=== PATIENT | male | born 1955 | race Caucasian/White ===

== ENCOUNTER 2022-07-30 06:36 | Emergency (ER) | payer MEDICARE, SELFPAY ==
--- NOTE | ~2022-07-30 | XR_ITS ---
EXAMINATION: XR chest 2V DATE: 07/30/2022 07:01 INDICATION: Shortness of breath. TECHNIQUE: Frontal and lateral views of the chest were obtained. COMPARISON: Chest 2 views 08/31/2018, CT chest 05/11/2014 FINDINGS: Calcified right lung nodules and calcified right hilar lymph nodes are consistent with old granulomatous disease. No pleural effusion or pneumothorax. The heart size is normal. IMPRESSION: 1. No acute cardiopulmonary disease. Reviewed, dictated and finalized at location A.
[2022-07-30 06:37] VITALS: BP 119/89; PULSE 110; RESP 20; TEMP 36.1; O2SAT 100
--- NOTE | 2022-07-30 06:43 | ECG_ITS ---
Measurements Intervals [place] Rate: 61 P: 57 SC: 182 QRS: 34 QRSD: 90 T: 78 QT: 388 QTc: 393 Interpretive Statements SINUS RHYTHM POSSIBLE LEFT ATRIAL ENLARGEMENT BORDERLINE T WAVE ABNORMALITY- ANT/HIGH LAT LEADS BASELINE ARTIFACT- V3 BORDERLINE ECG COMPARED TO ECG 08/31/2018 08:12:38 T-WAVE ABNORMALITY NOW PRESENT Electronically Signed On 07-30-2022 8:02:13 CDT by Tristin Redman D.O.
[2022-07-30 06:57] LABS: Basophils Absolute Auto 0.1 K/mm3 (0.0-0.1); Basophils Percent Auto 0.8 % (0.2-1.2); Eosinophils Absolute Auto 0.1 K/mm3 (0-0.3); Eosinophils Percent Auto 1.6 % (0-4.4); Hematocrit 51.6 % (42.0-52.0); Hemoglobin 17.1 g/dL (14.0-18.0); Immature Granulocyte Absolute 0.02 K/mm3 (0.00-0.031); Immature Granulocyte Percent A 0.3 % (0-0.5); Lymphocytes Absolute Auto 2.61 K/mm3 (0.9-3.2); Lymphocytes Percent Auto 35.4 % (18.3-44.2); Mean Corpuscular HGB Conc 33.1 g/dl (32-36); Mean Corpuscular Volume 93.6 fl (80-100); Mean Platelet Volume 8.6 fl (7.4-10.4); Monocytes Absolute Auto 0.7 K/mm3 (0.1-0.6); Monocytes Percent Auto 9.1 % (2.6-8.5); Neutrophils Absolute Auto 3.9 K/mm3 (1.3-6.7); Neutrophils Percent Auto 52.8 % (45.5-73.1); Platelet Count Result 330 k/mm3 (150-375); Red Blood Count 5.51 M/mm3 (4.6-6.20); Red Cell Distribution Width 13.2 % (11.5-14.5); White Blood Count 7.4 K/mm3 (4.5-10.0)
[2022-07-30 07:11] LABS: Alanine Aminotransferase 26 U/L (6-50); Alkaline Phosphatase 56 U/L (38-126); Anion Gap 9 mmol/L (8-16); Aspartate Amino Transferase 29 U/L (17-59); Bilirubin,Total 1.1 mg/dL (0.2-1.3); Blood Urea Nitrogen 13 mg/dL (9-20); Calcium 9.8 mg/dL (8.4-10.2); Carbon Dioxide 28 mmol/L (22-30); Chloride 103 mmol/L (98-107); Estimated CRCL calculation 68 ml/min; Estimated Glomerular Filt Rate > 60; Glucose 127 mg/dL (65-110); Potassium 4.1 mmol/L (3.4-5.0); Sodium 140 mmol/L (137-145)
[2022-07-30 07:13] VITALS: PULSE 61; O2SAT 100
[2022-07-30 07:14] VITALS: O2SAT 100
[2022-07-30 07:17] VITALS: BP 120/85; PULSE 67; RESP 18; O2SAT 100
--- NOTE | 2022-07-30 07:31 | ED.ARRPALP ---
HPI - Arrhythmia/Palpitations General Chief Complaint: Arrhythmia/Palpitations Stated Complaint: believes in a-fib for 24 hours, sob Time Seen by Provider: 07/30/22 07:31 Source: patient Mode of arrival: ambulatory Limitations: no limitations History of Present Illness HPI narrative: Patient is 66 years old white male drove himself to the emergency room because of palpitation over the last 30 hours. He denies any chest pain, fever, chills, nausea, vomiting, shortness of breath or back pain. The monitor and EKG showing normal sinus rhythm but patient is still feels his heart is acting funny and fluttering. History of atrial fibrillation converted to normal sinus rhythm years ago, currently on Cardizem Related Data Home Medications Medication Instructions Recorded Confirmed aspirin 325 mg tablet 325 mg PO DAILY 09/29/19 01/02/22 magnesium oxide 500 mg tablet 500 mg PO DAILY 09/29/19 01/02/22 urtmabwn-oyk-kmhky acid 300 1 tablet PO DAILY 09/29/19 01/02/22 mcg-lycopene 600 mcg-lutein 300 mcg tablet (Centrum Silver Ultra Men's) Allergies Allergy/AdvReac Type Severity Reaction Status Date / Time methocarbamol Allergy Unknown HIVES Verified 07/30/22 07:18 Review of Systems Review of Systems: All systems reviewed & are unremarkable except as noted in HPI and below PMFSH Surgical History Surgical History History of cataract surgery Mar 2021 Family History Family History Mother Patient's mother is in good health Father Family history of heart disease in male family member before age 55, Onset Age: 66 Patient's father is , Onset Age: 66 Social History Social History Smoking status: Never smoker Second hand tobacco smoke exposure: No Alcohol intake: current Drinks per week: 10 Substance use: never Lack of Transportation: No Lack of Food: Never True Current Housing: I Have Housing Concerned About Future Housing: No Difficulty Paying Gas/Electric Bills: No Difficulty Paying for Meds: No Currently Unemployed: No Education: Bachelor's Degree Difficulty w/ Childcare or Family Care: No Exam Narrative: General appearance: Well-developed, well-nourished Skin: Normal color Head: Normocephalic, nontraumatic Eyes: Clear conjunctiva ENT: Oropharynx normal, ears normal, nose normal Neck: Supple, nontender Chest and respiratory: Airway patent, no respiratory distress, no accessory muscle use Heart: Regular rate/rhythm Abdomen: Soft, nontender, no organomegaly, quiet bowel sounds Vascular: Normal peripheral pulses, normal capillary refill. Musculoskeletal: Normal range of motion, nontender back Neurologic: Alert and oriented ?3, STOCKROOM KEEPER is normal as tested, no gross motor deficit Course Reevaluation(s) Reevaluation #1: Patient feeling much better, convinced that he does not have A-fib even with physical activity at the bedside before discharge. Date: 07/30/22 Time: 09:14 Vital Signs Vital signs: Vital Signs Temperature 36.1 C L 07/30/22 06:37 Pulse Rate 110 H 07/30/22 06:37 Respiratory Rate 20 07/30/22 06:37 Blood Pressure 119/89 07/30/22 06:37 Pulse Oximetry 100 07/30/22 06:37 Oxygen Delivery Room Air 07/30/22 06:37 Temperature 36.1 C L 07/30/22 06:37 Pulse Rate 80 07/30/22 07:53 Respiratory Rate 20 07/30/22 07:53 Blood Pressure 129/85 07/30/22 07:53 Pulse Oximetry 100 07/30/22 07:53 Oxygen Delivery Room Air 07/30/22 07:14 MDM - Arrhythmia/Palpitations MDM Narrative Medi
[2022-07-30 07:53] VITALS: BP 129/85; PULSE 80; RESP 20; O2SAT 100
== END 2022-07-30 08:03 | disposition home or self-care (01) ==
PROVIDERS: Emergency Medicine; Emergency Provider Emergency Medicine; PCP Physician Assistant
DX: R00.2 Palpitations (principal); I48.91 Unspecified atrial fibrillation; Z98.49 Cataract extraction status, unspecified eye; Z79.82 Long term (current) use of aspirin; R94.31 Abnormal electrocardiogram [ECG] [EKG]
CPT/HCPCS: 36415; 71046; 80053; 85025; 93005; 99284

== ENCOUNTER 2023-11-09 08:38 | Emergency (ER) | payer MEDICARE, SELFPAY ==
--- NOTE | ~2023-11-09 | CT_ITS ---
EXAMINATION: CT lumbar spine wo con DATE: 11/09/2023 10:32 INDICATION: Low back pain. TECHNIQUE: Computed tomography (CT) of the lumbar spine was performed without intravenous contrast. A utomated exposure control and iterative reconstruction technique were employed. The dose-length produ ct was 1315.52 mGy-cm. COMPARISON: None FINDINGS: Alignment is normal. There is mild chronic anterior wedging of T11-L2 vertebral bodies. The re is mildly decreased disc height from L2-L3 through L4-L5 and moderately decreased disc height at L 5-S1. The following disc levels are specifically discussed: L1-L2: The disc does not extend beyond the endplate margin. There is mild bilateral facet joint osteo arthritis. There is no neural foraminal stenosis. There is no central canal stenosis. L2-L3: The disc is bulging. There is mild bilateral facet joint osteoarthritis. There is mild bilater al neural foraminal stenosis. There is mild central canal stenosis. L3-L4: The disc is bulging. There is mild right and moderate left facet joint osteoarthritis. There i s mild bilateral neural foraminal stenosis. There is mild central canal stenosis. L4-L5: The disc is bulging. There is severe bilateral facet joint osteoarthritis. There is mild bilat eral neural foraminal stenosis. There is mild central canal stenosis. L5-S1: The disc is bulging. There is moderate bilateral facet joint osteoarthritis. There is mild lorri ateral neural foraminal stenosis. There is mild central canal stenosis. IMPRESSION: 1. Moderate lumbar spondylosis. Reviewed, dictated and finalized at location A.
[2023-11-09 08:43] VITALS: BP 141/96; PULSE 73; RESP 20; TEMP 36.4; O2SAT 97
[2023-11-09 10:05] LABS: Basophils Absolute Auto 0.1 K/mm3 (0.0-0.1); Basophils Percent Auto 0.5 % (0.2-1.2); Eosinophils Percent Auto 0.2 % (0-4.4); Hematocrit 45.4 % (42.0-52.0); Hemoglobin 15.1 g/dL (14.0-18.0); Immature Granulocyte Absolute 0.06 K/mm3 (0.00-0.031); Immature Granulocyte Percent A 0.5 % (0-0.5); Lymphocytes Percent Auto 27.9 % (18.3-44.2); Mean Corpuscular HGB Conc 33.3 g/dl (32-36); Mean Corpuscular Hemoglobin 31.1 pg (26-34); Mean Corpuscular Volume 93.6 fl (80-100); Mean Platelet Volume 8.9 fl (7.4-10.4); Monocytes Percent Auto 9.1 % (2.6-8.5); Neutrophils Absolute Auto 7.1 K/mm3 (1.3-6.7); Neutrophils Percent Auto 61.8 % (45.5-73.1); Platelet Count Result 321 k/mm3 (150-375); Red Blood Count 4.85 M/mm3 (4.6-6.20); Red Cell Distribution Width 12.8 % (11.5-14.5); White Blood Count 11.5 K/mm3 (4.5-10.0)
[2023-11-09] MEDS: HYDROmorphone HCL INJ (*CRX) 1 MG/ML SYR IV PUSH (10:05)
[2023-11-09] MEDS: LACTATED RINGERS 1,000 ML 999 ML IV CONT (10:05)
[2023-11-09 10:09] LABS: Anion Gap 13 mmol/L (4-12); Blood Urea Nitrogen 16 mg/dL (9-20); Calcium 9.6 mg/dL (8.4-10.2); Carbon Dioxide 26 mmol/L (22-30); Chloride 99 mmol/L (98-107); Estimated CRCL calculation 70 ml/min; Estimated Glomerular Filt Rate > 60; Glucose 96 mg/dL (65-110); Potassium 3.4 mmol/L (3.4-5.0); Sodium 138 mmol/L (137-145)
--- NOTE | 2023-11-09 11:03 | PC.NURSE ---
Pt provided with urinal for urine sample. Pt states he will try
[2023-11-09 12:49] VITALS: BP 137/90; PULSE 60; RESP 20; O2SAT 98
[2023-11-09 13:08] LABS: Add Urine Microscopic? YES; Appearance Urine Turbid (Clear); Bacteria Urine None Seen /hpf; Bilirubin Urine Negative (Negative); Blood Urine Negative (Negative); Color Urine Yellow (Yellow); Glucose Urine UA Negative (Negative); Ketones Urine Trace mg/dL (Negative); Leukocyte Esterase Ur Negative LEU/UL (Negative); Nitrate Urine Negative (Negative); Non Pathogenic Casts 0-2; Protein Urine Negative (Negative); RBC Urine 0-2 /hpf (0-2); Specific Grav Ur 1.018 (1.001-1.035); Squamous Epithelial Cell Urine None Seen /hpf (Few); WBC Urine 0-5 /hpf (0-3)
[2023-11-09] MEDS: HYDROmorphone HCL INJ (*CRX) 1 MG/ML SYR 0.5 MG IV PUSH (13:56)
[2023-11-09] MEDS: CYCLOBENZAPRINE HCL 5 MG TABLET PO (13:56)
[2023-11-09] MEDS: LIDOCAINE 5% PATCH 1 PATCH TRANSDERM (13:56)
[2023-11-09] MEDS: dexAMETHasone SOD PHOS INJ 10 MG/ML 1 ML VIAL IV PUSH (13:56)
[2023-11-09 14:04] VITALS: BP 135/89; PULSE 65; RESP 16; O2SAT 98
--- NOTE | 2023-11-09 14:05 | PC.NURSE ---
Pt c/o hunger. made aware. Dr. Fischer states pt can have snack. Crackers provided.
--- NOTE | 2023-11-09 15:02 | ED.BACK ---
HPI - Back Pain/Injury General Chief Complaint: Back Pain/Injury Stated Complaint: back pain Time Seen by Provider: 11/09/23 09:17 History of Present Illness HPI Narrative: This is a 67-year-old male with no significant pertinent past medical history who presents to the emergency department chief complaint of left-sided back and leg pain. Denies any history of sciatica and has no recent injuries or trauma. He states he woke up yesterday with low back pain that started radiating to his left buttock on the posterior aspect. Pain started radiating down to his left leg as a sharp sensation in quality worse with movements of his left leg. Able to ambulate somewhat limited by pain. Has not taken anything for it medication-trejo at home. Denies any urinary complaints and states he is urinating frequently without any dysuria, sensory changes, incontinence. No fecal incontinence or loose stools. Denies any abdominal pain or upper back pain. Was previously in his normal state of health. Related Data Home Medications Medication Instructions Recorded Confirmed aspirin 325 mg tablet 325 mg PO DAILY 09/29/19 08/01/23 magnesium oxide 500 mg PO DAILY 09/29/19 08/01/23 gbgkcjmb-de-hukoi 300 mcg-K 60 1 tablet PO DAILY 09/29/19 08/01/23 mcg-lycop 600 mcg-lutein 300 mcg tablet (Centrum Silver Ultra Men's) mirabegron 25 mg tablet,extended 25 mg PO DAILY 08/01/23 08/01/23 release 24 hr (Myrbetriq) Allergies Allergy/AdvReac Type Severity Reaction Status Date / Time methocarbamol Allergy Unknown HIVES Verified 08/01/23 08:17 Review of Systems Review of Systems: As reviewed above in HPI [facility] Surgical History Surgical History History of cataract surgery Mar 2021 Family History Family History Mother Patient's mother is in good health Father Family history of heart disease in male family member before age 55, Onset Age: 66 Patient's father is , Onset Age: 66 Social History Social History Smoking status: Never smoker Second hand tobacco smoke exposure: No Alcohol intake: current Drinks per week: 10 Substance use: never Lack of Transportation: No Lack of Food: Never True Current Housing: I Have Housing Concerned About Future Housing: No Difficulty Paying Gas/Electric Bills: No Difficulty Paying for Meds: No Currently Unemployed: No Education: Bachelor's Degree Difficulty w/ Childcare or Family Care: No Exam Narrative: GENERAL: [Well-appearing, well-nourished, and in no acute distress.] HEAD: [Normocephalic, atraumatic.] EYES: [PERRLA and EOMI.] ENT: Nares clear, no rhinorrhea or epistaxis. Mucous membranes moist. NECK: Supple. CHEST: [Clear to auscultation. No respiratory distress.] HEART: [Regular rate and rhythm]. No murmur heard. [Normal peripheral pulses.] ABDOMEN: [Soft, nondistended], [nontender], [No rigidity or guarding] EXTREMITIES: Positive straight leg raise on the left lower extremity, tenderness to palpation of the low paraspinal muscles without any midline tenderness to palpation. Negative contralateral straight leg raise. Full range of motion of the upper and lower extremities. Ambulating with an antalgic gait. SKIN: Warm, dry, no rash. NEURO: [No focal deficits]. Alert and oriented [x3.] Full strength and sensation, no ataxia. No sensory deficits or incontinence. PSYCH: [Normal mood and affect.] Course Vital Signs Vital signs: Vital Signs Temperature 36.4 C 11/09/23 08:43 Pulse Rate 73 11/09/23 08:43 Respiratory Rate 20 11/09/23 08:43 Blood Pressure 141/96 H 11/09/23 08:43 Pulse Oximetry 97 11/09/23 08:43 Oxygen Delivery Room Air 11/09/23 08:43 Temperature 36.4 C 11/09/23 08:43 Pulse Rate 65 11/09/23 14:04 Respiratory
== END 2023-11-09 15:46 | disposition home or self-care (01) ==
PROVIDERS: Emergency Provider Student in an Organized Health Care Education/Training Program; PCP Physician Assistant
DX: M54.40 Lumbago with sciatica, unspecified side (principal); Z79.82 Long term (current) use of aspirin
CPT/HCPCS: 36415; 72131; 80048; 81001; 85025; 96361; 96374; 96375; 96376; 99284; A9270; J1100; J1170; J7120

== ENCOUNTER 2025-02-26 09:21 | Outpatient (CLI) | payer MEDICARE, SELFPAY ==
--- NOTE | ~2025-02-26 | XR_ITS ---
XR hip LT min 2V 02/26/2025 09:51 INDICATION: Left hip pain PROCEDURE: AP pelvis and 2 views left hip COMPARISON: 04/19/2017 FINDINGS: Fracture, dislocation or subluxation is not identified. The soft tissues appear within normal limits. No foreign bodies are identified. There are pelvic phleboliths. IMPRESSION: 1: NO ACUTE BONE OR JOINT ABNORMALITY IDENTIFIED. Reviewed, dictated and finalized at location O. PIPE [employer]ER
--- OUTSIDE RECORDS SUMMARY | 2025-02-26 09:27 | XMS_ITS | Patient Health Record ---
Author Organization [facility] Billing Info Address [address] [place] [address] Phone [phone] Care Team Providers Care Electrician'S Helper Name Role Phone MOUSE DR. CHRISTOPH JIMENEZ Primary Care Provider Unavail able Allergies Allergen (clinical drug ingredient) Drug/Non Drug Allergy documented on EMR Reaction Allergy Type Onset Date Status methocarbamol Robaxin rash Drug Allergy Act kadie Reason For Referral No Information Medications Medication SIG (Take, Route, Frequency, Duration) Notes Start Date End Date Diagnosis (ICD Code) Status Cardizem 120 MG Tablet 1 tablet before meals Orally Three times a day Mixed hyperlipidemia (ICD_9 - 272.2) Active Eliquis 5 MG Tablet as directed Orally Mixed hyperlipidemia (ICD_9 - 272.2) Active Fenofibrate 160 MG Tablet 1 tablet with a meal Orally Once a day 02/13/2013 Mixed hyperlipidemia (ICD_9 - 272.2) Active Omeprazole 20mg Capsule Delayed Release take 1 capsule daily (need appointment for future refills) orally daily Mixed hyperlipidemia (ICD_9 - 272.2) Active Metoprolol Tartrate 50MG Tablet take 1 tablet daily (future refill requests require a follow up appointment) Orally Once a day 06/12/2012 Mixed hyperlipidemia (ICD_9 - 272.2) Active Lipitor 40 MG Tablet 1 tablet Orally Once a day Mixed hyperlipidemia (ICD_9 - 272.2) Active Centrum Silver Tablet as directed Orally Mixed hyperlipidemia (ICD_9 - 272.2) Active Social History Sex Observation Social History Observation Description Sex Observation Male Problems Problem Type SNOMED Code ICD Code Dates Problem Status W/U Status Risk Notes Problem Mixed hyperlipidemia (369334503) Mixed hyperlipidemia (272.2) Active confirmed Problem Benign essential hypertension (3464999) Essential hypertension, benign (401.1) Active confirmed Problem Insomnia (277594254) Insomnia (780.52) Active confirmed Problem Fatigue (50959277) Fatigue (780.79) Active conf irmed Problem Gastroesophageal reflux disease (083967389) GERD (gastroesophageal reflux disease) (530.81) Active confirmed Problem Sleep disorder (24263270) Sleep disorder (780.50) Active confirmed Problem Male hypogonadism (97721283) Hypogonadism male (257.2) Active confirmed Problem Atrial fibrillation (disorder) (60340990) Afib (427.31) Added On:05/28 Active confirmed Problem Aortic root dilatation (958198500) Dilated aortic root (447.71) Added On:05/28 Active confirmed Plan Of Treatment Pending Test Test Name Order Date PSA, TOTAL (Q-5363) 07/15/2012 PSA, TOTAL (Q-5363) 05/15/2013 Comprehensive Metabolic Panel(Q-63001) 0 05/15/2013 Comprehensive Metabolic Panel(Q-93224) 1 03/24/2012 Comprehensive Metabolic Panel(Q-53800) 0 07/15/2012 LIPID PANEL WITH REFLEX TO DIRECT LDL (Q -02569) 01/22/2013 LIPID PANEL WITH REFLEX TO DIRECT LDL (Q -40911) 07/15/2012 LIPID PANEL WITH REFLEX TO DIRECT LDL (Q -94806) 05/15/2013 Insurance Providers Payer Name Payer Address Payer Phone Subscriber Number Group Number Insured Name Patient Relationship to Insured Coverage Start Date Coverage End Date [employer] OAP/[id number] 223 [address] [place], [place] [phone] [id number] Berhane Haile Self - patient is the insured 3 4 Medical (General) History Medical History History ICD Code hyperlipidemia acid reflux irregular heart beat dt 2007 Surgical History Surgery Date(Month/Year) colonoscopy 2005 knee arthroscopy--R 1986 EYE SURGERY 2003 UPPER GI 1999 Hospitalization History Reason Date(Month/Year) Cardiac event 2013
--- OUTSIDE RECORDS SUMMARY | 2025-02-26 09:27 | XMS_ITS | Encounter Summary ---
Author Organization [facility] Address [facility] [place] [address] Care Team Providers Care Supervisor Frame Assembly Name Role Phone Everett Wilcox MD Primary Care Provider [phone] Antonio Mak MD Unavailable Abhijit Mesa DO Primary Care Provider [phone] Encounter Details Date Type Department Care Team (Late Contact Info) Description 05/17/2020 Abstract [facility] [address] [id number] Atul Cho MA Social History Tobacco Use Types Packs/Day Years Used Date Smoking Tobacco: Never Smokeless Tobacco: Never Alcohol Use Standard Drinks/Week Comments Yes 0 (1 standard drink = 0.6 oz pur e alcohol) 2 drinks a day Sex and Gender Information Value Date Recorded Sex Assigned at Not on file Legal Sex Male 5:18 PM CDT Gender Identity Not on file Sexual Orientation Not on file Occupation Industry Job Start Date Job End Date Not on file Not on file Not on file Not on file COVID-19 Exposure Response Date Recorded In the last month, have you been in contact with someone who was confirmed or suspected to have Coronavirus / COVID-19? No / Unsure 05/16/2020 8:25 AM CDT documented as of this encounter Plan of Treatment Upcoming Encounters Date Type Department Care Team (Late st Contact Info) Description 06/21/2025 9:00 AM CDT Office Visit [facility], [address] [place] [address] Dorita Myers, ANP-BC [facility]. [address] [place], [place] [id number] documented as of this encounter Procedures Procedure Name Priority Date/Time Associated Diagnosis Comments CMP (ABSTRACTED LAB) Routine 06/22/2024 LIPID PANEL Routine 06/22/2024 COMPREHENSIVE METABOLIC PANEL Routine 07/30/2022 COMPREHENSIVE METABOLIC PANEL Routine 06/20/2022 LIPID PANEL Routine 06/20/2022 LIPID PANEL Routine 09/08/2021 CBC (OUTSIDE LAB) Routine 09/16/2019 PROSTATE SPECIFIC ANTIGEN,TOTAL Routine 09/16/2019 COMPREHENSIVE METABOLIC PANEL Routine 09/16/2019 LIPID PANEL Routine 09/16/2019 THYROID STIM HORMONE TSH Routine 09/16/2019 documented in this encounter Results * LIPID PANEL (06/22/2024) CHOLESTEROL 158 HDL 47 TRIGLYCERIDES 123 NON HDL CHOLESTEROL 111 LDL (CALCULATED) 89 06/22/2024 us Default History Genericprovider LABORATORY Final Result * CMP (ABSTRACTED LAB) (06/22/2024) SODIUM S/P/B 139 POTASSIUM S/P/B 4.1 CHLORIDE S/P/B 107 CO2 28 BUN 11 CREATININE S/P/B 1.18 0.7 - 1.3 EGFR NON-AFR. AMER. 67 <=90 CALCIUM S/P/B 9.6 GLUCOSE 103 mg/dL TOTAL PROTEIN S/P/B 6.7 ALBUMIN S/P/B 4.3 3.5 - 5.0 AST 17 ALT 16 ALKALINE PHOSPHATASE S/P/B 38 BILIRUBIN TOTAL S/P/B 0.7 GLOBULIN 2.4 06/22/2024 us Default History Genericprovider LAB-OUTSIDE/ABST RACTED Edited Result - Final * COMPREHENSIVE METABOLIC PANEL (07/30/2022) SODIUM S/P/B 140 GLUCOSE 127 mg/dL AST 29 BUN 13 CREATININE S/P/B 1.0 0.7 - 1.3 POTASSIUM S/P/B 4.1 CHLORIDE S/P/B 103 ALT 26 GFR ESTIMATE >60 us Default History Genericprovider LABORATORY Final Result * LIPID PANEL (06/20/2022) CHOLESTEROL 168 HDL 50 TRIGLYCERIDES 110 NON HDL CHOLESTEROL 118 LDL (CALCULATED) 97 06/20/2022 us Default History Genericprovider LABORATORY Final Result * COMPREHENSIVE METABOLIC PANEL (06/20/2022) SODIUM S/P/B 138 POTASSIUM S/P/B 4.3 CO2 28 CHLORIDE S/P/B 103 GLUCOSE 104 mg/dL CALCIUM S/P/B 9.7 BUN 15 CREATININE S/P/B 1.02 0.7 - 1.3 EGFR NON-AFR. AMER. 81 <=90 ALKALINE PHOSPHATASE S/P/B 40 ALT 17 AST 16 BILIRUBIN TOTAL S/P/B 0.7 ALBUMIN S/P/B 4.3 3.5 - 5.0 TOTAL PROTEIN S/P/B 7.0 GLOBULIN 2.7 06/20/2022 us Default History Genericprovider LABORATORY Edited Result - Final * LIPID PANEL (09/08/2021) CHOLESTEROL 176 HDL 51 TRIGLYCERIDES 128 NON HDL CHOLESTEROL 125 LDL (CALCULATED) 103 09/08/2021 us Doc [facility] Abstract LABORATORY Final Result * PROSTATE SPECIFIC ANTIGEN,TOTAL (09/16/2019) PSA 0.8 09/16/2019 us Doc [facility] Abstract LABORATORY Final Result * CBC (OUTSIDE LAB) (09/16/2019) WBC 5.2 HGB 15.0 HCT 46.0 PLT 289 09/16/2019 us Doc [facility] Abstract LAB-OUTSIDE/ABSTRACTED Final Result * THYROID STIM HORMONE, TSH (09/16/2019) TSH 0.98 09/16/2019 us Doc [facility] Abstract LABORATORY Final Result * (ABNORMAL) COMPREHENSIVE METABOLIC PANEL (09/16/2019) Pathologist [facility] SODIUM S/P/B 139 POTASSIUM S/P/B 4.2 CO2 27 CHLORIDE S/P/B 105 GLUCOSE 104 mg/dL CALCIUM S/P/B 9.6 BUN 14 CREATININE S/P/B 0.97 0.7 - 1.3 EGFR AFR. AMER. 96(A) <=90 EGFR NON-AFR. AMER. 83 <=90 ALKALINE PHOSPHATASE S/P/B 38 ALT 18 AST 19 BILIRUBIN TOTAL S/P/B 0.6 ALBUMIN S/P/B 4.3 3.5 - 5.0 TOTAL PROTEIN S/P/B 7.1 GLOBULIN 2.8 09/16/2019 us Doc [facility] Abstract LABORATORY Final Result * LIPID PANEL (09/16/2019) CHOLESTEROL 199 HDL 48 TRIGLYCERIDES 267 NON HDL CHOLESTEROL 151 LDL (CALCULATED) 113 09/16/2019 us Doc [facility] Abstract LABORATORY Final Result documented in this encounter Visit Diagnoses Not on filedocumented in this encounter Care Teams Supervisor Frame Assembly Relationship Specialty Start Date End Date Everett Wilcox MD [address] [place], [place] [id number] PCP - General INTERNAL MEDICINE 09/02/15 06/12/24 Abhijit Mesa DO [address] [facility] [address] [place], [place] [id number] PCP - General 06/13/24 Antonio Mak MD [facility]. [address] [place] [address] Lori Teamcenter Solution Architect CARDIOVASCULAR DISEASE 09/02/15 documented as of this encounter
--- OUTSIDE RECORDS SUMMARY | 2025-02-26 09:27 | XMS_ITS | Encounter Summary ---
Author Organization [facility] Address [facility] [place] [address] Care Team Providers Care Fiberglass Boat Finisher Name Role Phone Everett Wilcox MD Primary Care Provider [phone] Antonio Mak MD Unavailable Abhijit Mesa DO Primary Care Provider [phone] Encounter Details Date Type Department Care Team (Late st Contact Info) Description 10/08/2015 Abstract [facility] [address] [id number] Atul Cho MA Social History Tobacco Use Types Packs/Day Years Used Date Smoking Tobacco: Never Alcohol Use Standard Drinks/Week Comments Yes 0 (1 standard drink = 0.6 oz pur e alcohol) 2 drinks a day Sex and Gender Information Value Date Recorded Sex Assigned at Not on file Legal Sex Male 5:18 PM CDT Gender Identity Not on file Sexual Orientation Not on file documented as of this encounter Plan of Treatment Upcoming Encounters Date Type Department Care Team (Late st Contact Info) Description 06/21/2025 9:00 AM CDT Office Visit [facility], [address] [place], [place] [id number] Dorita Myers, ANP-BC [facility]. [address] [place], [place] [id number] documented as of this encounter Procedures Procedure Name Priority Date/Time Associated Diagnosis Comments CBC (OUTSIDE LAB) Routine 06/15/2016 COMPREHENSIVE METABOLIC PANEL Routine 06/15/2016 LIPID PANEL Routine 06/15/2016 THYROID STIM HORMONE TSH Routine 06/15/2016 PROSTATE SPECIFIC ANTIGEN,TOTAL Routine 06/01/2015 COMPREHENSIVE METABOLIC PANEL Routine 06/01/2015 LIPID PANEL Routine 06/01/2015 THYROID STIM HORMONE TSH Routine 06/01/2015 COMPREHENSIVE METABOLIC PANEL Routine 12/02/2014 LIPID PANEL Routine 12/02/2014 documented in this encounter Results * CBC (OUTSIDE LAB) (06/15/2016) WBC 6.2 HGB 15.2 HCT 44.6 PLT 276 06/15/2016 us Doc [facility] Abstract LAB-OUTSIDE/ABSTRACTED Final Result * COMPREHENSIVE METABOLIC PANEL (06/15/2016) SODIUM S/P/B 144 POTASSIUM S/P/B 4.3 CO2 27 CHLORIDE S/P/B 103 GLUCOSE 95 mg/dL CALCIUM S/P/B 9.7 BUN 14 CREATININE S/P/B 0.90 0.7 - 1.3 EGFR NON-AFR. AMER. >60 <=90 ALKALINE PHOSPHATASE S/P/B 51 ALT 32 AST 32 BILIRUBIN TOTAL S/P/B 0.5 ALBUMIN S/P/B 4.5 3.5 - 5.0 TOTAL PROTEIN S/P/B 8.0 06/15/2016 us Doc [facility] Abstract LABORATORY Final Result * LIPID PANEL (06/15/2016) CHOLESTEROL 199 HDL 48 TRIGLYCERIDES 142 LDL (CALCULATED) 118 06/15/2016 us Doc [facility] Abstract LABORATORY Final Result * THYROID STIM HORMONE, TSH (06/15/2016) TSH 1.240 06/15/2016 us Doc [facility] Abstract LABORATORY Final Result * THYROID STIM HORMONE, TSH (06/01/2015) TSH 1.930 06/01/2015 us Doc [facility] Abstract LABORATORY Edited Resul t - Final * COMPREHENSIVE METABOLIC PANEL (06/01/2015) SODIUM S/P/B 144 POTASSIUM S/P/B 4.2 CO2 30 CHLORIDE S/P/B 105 GLUCOSE 94 CALCIUM S/P/B 9.4 BUN 17 CREATININE S/P/B 0.9 EGFR NON-AFR. AMER. >60 ALKALINE PHOSPHATASE S/P/B 43 ALT 27 AST 24 BILIRUBIN TOTAL S/P/B 0.3 ALBUMIN S/P/B 4.5 3.5 - 5.0 TOTAL PROTEIN S/P/B 7.9 06/01/2015 us Doc [facility] Abstract LABORATORY Final Result * LIPID PANEL (06/01/2015) CHOLESTEROL 211 HDL 54 TRIGLYCERIDES 151 LDL (CALCULATED) 141 06/01/2015 us Doc [facility] Abstract LABORATORY Final Result * PROSTATE SPECIFIC ANTIGEN,TOTAL (06/01/2015) PSA 0.68 06/01/2015 us Doc [facility] Abstract LABORATORY Final Result * LIPID PANEL (12/02/2014) CHOLESTEROL 223 HDL 44 TRIGLYCERIDES 289 LDL (CALCULATED) 134 12/02/2014 us Doc [facility] Abstract LABORATORY Final Result * COMPREHENSIVE METABOLIC PANEL (12/02/2014) SODIUM S/P/B 139 POTASSIUM S/P/B 4.2 CO2 27 CHLORIDE S/P/B 101 GLUCOSE 94 CALCIUM S/P/B 9.6 BUN 16 CREATININE S/P/B 1.0 EGFR NON-AFR. AMER. >60 ALKALINE PHOSPHATASE S/P/B 49 ALT 34 AST 32 BILIRUBIN TOTAL S/P/B 0.8 ALBUMIN S/P/B 4.5 3.5 - 5.0 TOTAL PROTEIN S/P/B 7.8 12/02/2014 us Doc [facility] Abstract LABORATORY Final Result documented in this encounter Visit Diagnoses Not on filedocumented in this encounter Care Teams Fiberglass Boat Finisher Relationship Specialty Start Date End Date Everett Wilcox MD [address] [place] [address] PCP - General INTERNAL MEDICINE 09/02/15 06/12/24 Abhijit Mesa DO [address] [facility] [address] [place] [address] PCP - General 06/13/24 Antonio [facility] MD [facility] [address] [place] [address] Salyer Dry Transfer Man CARDIOVASCULAR DISEASE 09/02/15 documented as of this encounter
--- OUTSIDE RECORDS SUMMARY | 2025-02-26 09:27 | XMS_ITS | Encounter Summary ---
Author Organization [facility] Address [facility] [place] [address] Care Team Providers Care Laminating Machine Offbearer Name Role Phone Antonio Mak MD Unavailable Abhijit Mesa DO Primary Care Provider [phone] Encounter Details Date Type Department Care Team (Late Contact Info) Description 06/24/2024 MyChart Message Enc [facility] [address] [place], [place] [phone] Dorita Myers, LELAND-BC [facility]. [address] [place], [place] [phone] Lab Results Social History Tobacco Use Types Packs/Day Years [...] file Not on file Not on file documented as of this encounter Plan of Treatment Upcoming Encounters Date Type Department Care Team (Late st Contact Info) Description 06/21/2025 9:00 AM CDT Office Visit [facility] [address] [place], [place] [id number] Dorita Myers, ANP-BC [facility]. [facility] [address] [place], [place] [phone] documented as of this encounter Visit Diagnoses Not on filedocumented in this encounter Care Teams Laminating Machine Offbearer Relationship Specialty Start Date End Date Abhijit Mesa DO [address] [facility] [address] [place], [place] [id number] PCP - General 06/13/24 Antonio Mak MD [facility]. [facility] [address] [place], [place] [phone] Lori Editorial Cartoonist CARDIOVASCULAR DISEASE 09/02/15 documented as of this encounter
--- OUTSIDE RECORDS SUMMARY | 2025-02-26 09:27 | XMS_ITS | Clinical Summary ---
Author Organization [facility] Address [facility] [place] [address] Care Team Providers Care Toilet Products Molder Name Role Phone Antonio Mak MD Unavailable bAhijit Mesa DO Primary Care Provider [phone] Allergies Active Allergy Reactions Criticality Noted Date Comments Methocarbamol Hives,Sneezing 09/20/2015 Medications fenofibrate 160 MG tablet Take 1 tablet (160 mg total) by mouth daily. 03/20/2016 Active Multiple Vitamin (DAILY VITAMIN) Tab Take 1 tablet by mouth daily. 11/06/2016 Active omeprazole 20 MG capsule Take 1 capsule (20 mg total) by mouth daily. 11/06/2016 Active Magnesium 500 MG Tab Take 1 tablet by mouth daily. 11/25/2017 Active fluticasone propionate 50 MCG/ACT nasal spray 2 sprays by Each Nostril route daily. SHAKE LIQUID 10/10/2020 Active tamsulosin (FLOMAX) 0.4 MG Cap Take 1 capsule (0.4 mg total) by mouth daily. 03/08/2022 Active aspirin EC (ECOTRIN) 81 MG tablet Take 1 tablet (81 mg total) by mouth daily. 06/10/2023 Active SUMAtriptan (IMITREX) 50 MG tablet 05/21/2024 Active topiramate (TOPAMAX) 50 MG Tab Take 1 tablet (50 mg total) by mouth daily. 05/21/2024 Active losartan (COZAAR) 25 MG tablet 05/03/2024 Active atorvastatin (LIPITOR) 80 MG tablet TAKE 1 TABLET BY MOUTH EVERY NIGHT AT BEDTIME 100 tablet 2 08/03/2024 Active dilTIAZem ER (TIAZAC) 120 MG 24 hr capsule TAKE 1 CAPSULE BY MOUTH DAILY 100 capsule 3 08/10/2024 Active Active Problems Problem Noted Date Diagnosed Date Paroxysmal atrial fibrillation 09/26/2015 Essential hypertension 09/26/2015 CAD (coronary artery disease) Overview (03/20/2016): nonobstructive CAD on angiogram in 2001 Ascending aorta dilatation Dyslipidemia Resolved Problems Problem Noted Date Diagnosed Date Resolved Date Benign essential HTN 016 A-fib 09/26/2015 Obstructive sleep apnea shaylee marquise with continuous positive airway pressure (CPAP) 03/20/2016 Immunizations Immunization Administration Dates Next Due Afluria 36 MONTHS+ (Prefilled Syringe IIV4) 11/02 Fluzone 6 Months+ Quad (0.5 mL Prefilled Syringe ) 10/27/2019 MODERNA COVID-19 (12+) MRNA, LNP-S, PF, 100 MCG/ 0.5 ML DOSE 05/17/2020,04/19/2020 Shingrix 10/01/2019,05/01/2019 Family History Medical History Relation Comments PR Father Relation Status Comments Father (Age 68) Social History Tobacco Use Types Packs/Day Years Used Date Smoking Tobacco: Never Smokeless Tobacco: Never Tobacco Cessation:Counseling Given: Not Answered Alcohol Use Standard Drinks/Week Comments Yes 0 [...] file Not on file Not on file Last Filed Vital Signs Vital Sign Reading Time Taken Comments Blood Pressure 114/68 06/15/2024 8:30 AM CDT Pulse 69 06/15/2024 8:30 AM CDT Temperature - - Respiratory Rate - - Oxygen Saturation 97% 06/15/2024 8:30 AM CDT Inhaled Oxygen Concentration - - Weight 97.5 kg (215 lb) 06/15/2024 8:30 AM CDT Height 182.9 cm (6') 06/15/2024 8:30 AM CDT Body Mass Index 29.16 06/15/2024 8:30 AM CDT Plan of Treatment Upcoming Encounters Date Type Department Care Team (Late st Contact Info) Description 06/21/2025 9:00 AM CDT Office Visit [facility], [address] [place], [place] [phone] Dorita Myers, ANP-BC [facility]. [address] [place], [place] [phone] Health Maintenance Due Date Last Done Comments Colorectal Cancer Screening Colonoscopy (10 Years) 1955 Hepatitis C 12/07/1973 DTaP, Tdap and Td Vaccines ( 1 - Tdap) 12/07/1974 Pneumococcal Vaccine: 50+ Years (1 of 2 - PCV) 12/07/1974 RSV Immunization or 60+ Years (1 - Risk 60-74 years 1-dose series) 2015 Annual Medicare Wellness Visit 12/07/2020 COVID-19 Vaccine (3 - 2024-2 6 season) 2024 05/17/2020, 04/19/2020 Influenza Adult (#1) 2024 10/27/2019, 11/20/2018 Zoster Vaccines Completed 10/01/2019, 05/01/2019 Hepatitis A Vaccines Aged Out No long er eligible based on patient's age to complete this topic Meningococcal B Vaccine Aged Out No l onger eligible based on patient's age to complete this topic Meningococcal Vaccine Aged Out No carey ioana eligible based on patient's age to complete this topic RSV Immunizations Under 20 Months Aged Out No longer eligible b ased on patient's age to complete this topic Insurance [facility] MEDICARE Care Teams Toilet Products Molder Relationship Specialty Start Date End Date Abhijit Mesa DO 0 [facility] [address] [place], [place] [phone] PCP - General 06/13/24 Antonio Mak MD [facility] [address] [place] [address] Lori Clinical Data Programmer CARDIOVASCULAR DISEASE 09/02/15
--- OUTSIDE RECORDS SUMMARY | 2025-02-26 09:27 | XMS_ITS | Encounter Summary ---
Author Organization [facility] Address [facility] [place] [address] Care Team Providers Care Cabin Agent Name Role Phone Antonio Mak MD Unavailable Abhijit Mesa DO Primary Care Provider [phone] Encounter Details Date Type Department Care Team (Late st Contact Info) Description 08/07/2024 Global Imaging Online Message Enc [facility] [address] [place], [place] [phone] Dorita Myers, ANP-BC Three [facility]. 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 Wouldbenefit from good BP control. documented in this encounter Plan of Treatment Upcoming Encounters Date Type Department Care Team (Late st Contact Info) Description 06/21/2025 9:00 AM CDT Office Visit [facility], [address] [place], [place] [phone] Dorita Myers, ANP-BC Three [facility]. [address] [place], [place] [phone] documented as of this encounter Visit Diagnoses Not on filedocumented in this encounter Care Teams Cabin Agent Relationship Specialty Start Date End Date Abhijit Mesa DO [address] [facility] [address] [place], [place] [phone] PCP - General 06/13/24 Antonio Mak MD [facility]. [address] [place], [place] [phone] [place] Commercial Loan Processor CARDIOVASCULAR DISEASE 09/02/15 documented as of this encounter
== END 2025-02-26 09:22 | disposition home or self-care (01) ==
PROVIDERS: PCP Internal Medicine; Visit Provider Internal Medicine
DX: M25.552 Pain in left hip (principal)
CPT/HCPCS: 73502